=== PATIENT | male | born 1980 | race Caucasian/White ===

== ENCOUNTER 2023-10-12 14:58 | Observation (INO) | payer MEDICARE, OTHER ==
[~2023-10-12] VITALS: Ht 175.3 cm; Wt 76.8 kg
[2023-10-12] MEDS ORDERED: Nitroglycerin 0.4 MG SUBL SL PRN (15:05)
[2023-10-12 15:21] LABS: BASOPHILS ABSOLUTE AUTO 0.04 K/mm3 (0.00-0.23); BASOPHILS PERCENT AUTO 1 % (0-2); EOSINOPHILS ABSOLUTE AUTO 0.28 K/mm3 (0.00-0.68); EOSINOPHILS PERCENT AUTO 3 % (0-6); Hematocrit 45.1 % (37.0-53.0); Hemoglobin 15.6 g/dL (13.5-17.5); IMMATURE GRAN ABSOLUTE AUTO 0.05 K/mm3 (0.00-0.10); IMMATURE GRAN PERCENT AUTO 1 % (0-1); LYMPHOCYTES ABSOLUTE AUTO 2.12 K/mm3 (0.84-5.20); LYMPHOCYTES PERCENT AUTO 26 % (21-46); MONOCYTES ABSOLUTE AUTO 0.48 K/mm3 (0.16-1.47); MONOCYTES PERCENT AUTO 6 % (4-13); Mean Corpuscular HGB 30.6 pg (26.0-34.0); Mean Corpuscular HGB Conc 34.6 g/dL (31.5-36.5); Mean Corpuscular Volume 89 fL (80-100); Mean Platelet Volume 11.4 fL (9.1-12.4); NEUTROPHILS PERCENT AUTO 64 % (41-73); Platelet Count 291 K/mm3 (150-400); RDW Standard Deviation 42.4 fL (35.1-46.3); Red Blood Cell Count 5.09 M/mm3 (4.30-5.90); White Blood Cell Count 8.27 K/mm3 (4.00-11.30)
[2023-10-12] MEDS ORDERED: Lisinopril2.5 MG PO (15:23)
[2023-10-12] MEDS ORDERED: Isosorbide Mono30 MG PO (15:23)
[2023-10-12] MEDS ORDERED: METF500 PO (15:24)
[2023-10-12] MEDS ORDERED: METO25ER PO (15:24)
[2023-10-12] MEDS ORDERED: IBU600 M1 PO (15:24)
[2023-10-12 15:36] LABS: International Normalized Ratio 0.98; Prothrombin Time Results 10.3 Sec (9.7-11.5)
[2023-10-12 15:48] LABS: Albumin, Blood 3.6 g/dL (3.4-5.0); Albumin/Globulin Ratio 1.2 (0.8-1.8); Bilirubin, Total 0.2 mg/dL (0.1-1.0); Bun/Creatinine Ratio 30.9 (12.0-20.0); Calcium, Blood 8.3 mg/dL (8.5-10.1); Creatinine, Blood 0.75 mg/dL (0.60-1.20); Globulin, Blood 2.9 g/dL (2.2-4.0); Potassium, Blood 4.1 mmol/L (3.5-5.5); Total Protein, Blood 6.5 g/dL (6.4-8.2)
[2023-10-12] MEDS ORDERED: Heparin Sodium 5000 Units/ML 1ML MDV IV ONE (16:20)
[2023-10-12] MEDS ORDERED: Heparin Sodium,Porcine/0.5 NS 500 ML IV SCH (16:20)
[2023-10-12] MEDS ORDERED: Acetaminophen 325 MG TABLET PO PRN (17:05)
[2023-10-12] MEDS ORDERED: Ondansetron HCl 2 MG / ML 2ML Vial IV PRN (17:10)
[2023-10-12] MEDS ORDERED: Aspirin 81 MG Chew PO ONE (17:10)
[2023-10-12] MEDS ORDERED: NS 1,000 ML IV SCH (17:10)
[2023-10-12] MEDS ORDERED: FLU VACC QS2023-24(6MOS UP)/PF 60 MCG/0.5 ML SYRINGE IM ONE ×2 (17:10→21:50)
[2023-10-12] MEDS ORDERED: Nitroglycerin 1 INCH/GM PKT TOP SCH (18:00)
[2023-10-12] MEDS ORDERED: Mag Hydrox/Al Hydrox/Simeth 18 ML,Lidocaine 2% Viscous Soln 9 ML,Atropine/Scopalam/Hyos... PO ONE (18:10)
[2023-10-12 18:52] VITALS: BP 108/80
[2023-10-12] MEDS ORDERED: Ketorolac Tromethamine 30mg Vial IV ONE (19:00)
[2023-10-12 19:58] VITALS: BP 108/78
[2023-10-13] VITALS (14 sets, daily range): BP systolic 96–141; BP diastolic 56–97
[2023-10-13] MEDS ORDERED: Nitroglycerin 1 INCH/GM PKT TOP PRN (04:18)
--- NOTE | 2023-10-13 05:05 | NUR ---
SHIFT SUMMARY PT WAS CHEST PAIN FREE UNTIL AROUND 0400 THIS AM. PT REPORTED CHEST PAIN TO BE 10/10 AND LOCATED IN HIS RIGHT CHEST, WHICH FELT LIKE "A TIGHT SHARP SQUEEZING BALL". EKG DONE. MD MERCADO NOTIFIED. X2 TROPONINS ORDERED. NITRO PASTE ORDER MODIFIED AND NEW NITRO PATCH PLACED. PRIOR TO EKG BEING DONE PT REPORTED THAT PAIN WAS GOING DOWN AND WAS 3/10 AT THAT TIME. OTHERWISE VITALS HAVE BEEN STABLE DURING THIS SHIFT. ADMITTING PROVIDER PREVIOUSLY DC'D HEPARIN GTT. NS INFUSING PER EMAR. PT INDEPENDENT WITH ADL'S. OCCASIONAL MOMENTS OF PARANOIA REGARDING EX GIRLFRIEND; SEE ASSESSMENT. OTHERWISE PT HAS BEEN CALM AND COOPERATIVE WITH CARE. PT NPO AFTER MIDNIGHT D/T PREVIOUS PROVIDER'S NURSE NOTIFY ORDER. BED IN LOWEST POSITION AND CALL LIGHT WITHIN REACH. THIS RN WILL REPORT TO ONCOMING DAYSHIFT RN.
[2023-10-13] MEDS ORDERED: Insulin Human Lispro 100 Units/ML 3ML Syringe SC SCH (07:30)
[2023-10-13] MEDS ORDERED: Metoprolol Succinate 25 MG TABCR PO SCH (09:00)
[2023-10-13] MEDS ORDERED: Lisinopril 5 MG Tab PO SCH (09:00)
[2023-10-13] MEDS ORDERED: Aspirin 81 MG Chew PO SCH (09:00)
[2023-10-13] MEDS ORDERED: Enoxaparin 40 MG/0.4 ML SYR SC SCH (09:00)
[2023-10-13] MEDS ORDERED: NS 250 ML IV ONE (09:44)
[2023-10-13] MEDS ORDERED: Verapamil HCL 2.5 MG/ML 2ML Injection ONE (09:44)
[2023-10-13] MEDS ORDERED: Heparin Sodium 1000 Units/ML 10ML MDV ONE (09:45)
[2023-10-13] MEDS ORDERED: NS 1,000 ML IV ONE ×2 (09:45→10:29)
[2023-10-13] MEDS ORDERED: Nitroglycerin 2 MG/20 ML BTL ONE (09:45)
[2023-10-13] MEDS ORDERED: Midazolam HCl 1MG / ML 2ML Vial ONE (10:28)
[2023-10-13] MEDS ORDERED: FentaNYL Citrate 50 MCG/ML 2 ML Injection ONE (10:28)
[2023-10-13 10:42] LABS: U Amphetamine Screen Not Detected; U Barbituate Screen Not Detected; U Benzodiazapine Screen Not Detected; U Buprenorphine Screen Not Detected; U Cannabinoids Screen Not Detected; U Cocaine Screen Not Detected; U Methadone Screen Not Detected; U Methamphetamine Screen Not Detected; U Opiates Screen Not Detected; U Oxycodone Screen Not Detected; U Phencyclidine Screen Not Detected
--- NOTE | 2023-10-13 11:52 | NUR ---
"Spiritual Care Visit | Pt. Request Pt. is awake in bed and welcomes my visit. Facilitate a life review. Pt. displays evidence of having experienced emotional trauma with the past 2 years. Listen with empathy and a calming presence. Pt. displays evidence of being engaged, aware and compliant. Consider matters of miguel and belief. Prayed with the Pt. and gave him a contact resource for a local [facility] at [facility]. Pt. verbalized gratitude for the spiritual care visit and CR info."
--- NOTE | 2023-10-13 16:24 | NUR ---
ASSUMED CARE OF PT AT 0700 THIS AM. PT IS A&OX4, COOPERATIVE WITH CARE, USES CALL LIGHT APPROPRIATELY, ODD AFFECT, VERY FIDGETY IN BED. PT HAS BEEN NPO FOR ANGIOGRAM THIS AM. PT LEFT TO RUNNING INSTRUCTOR APROX 1015 AND RETURNED TO ROOM AROUND 1115. TR BAND TO R WRIST WITH 15ML AIR REPORTED BY RUNNING INSTRUCTOR STAFF. NO CORONARY INTERVENTION. POST PROCEDURE VITAL SIGNS OBTAINED AND TR BAND DEFLATED PER MD ORDERS WITHOUT ANY COMLICATIONS NOTED. TR BAND IS COMPLETELY RECOVERED AT THIS TIME. DR WHITE IN TO SEE PT APROX 1530 TO DISCUSS ANGIOGRAM AND PT'S SYMPTOMS. PLAN TO DC PT TOMORROW. CALL LIGHT IN REACH AT THIS TIME. WILL CONTINUE TO MONITOR/TREAT AND GIVE REPORT TO POOAJ MATTHEWS RN AT 1900.
[2023-10-14 03:19] VITALS: BP 115/84
--- NOTE | 2023-10-14 03:20 | NUR ---
SHIFT SUMMARY THIS RN ASSUMED CARE OF PATIENT AT 1900. PT A&OX4. ABLE TO MAKE NEEDS KNOWN. VITALS STABLE. NO TELE. RT RADIAL SITE ANGIO SITE DRESSING C/D/I. NO HEMATOMA, DISCOLORATION, OR BLEEDING NOTED. PPP. ARMBOARD IN PLACE. INDEPENDENT WITH ADL'S. NO CHEST PAIN AT T/O THIS SHIFT. BED IN LOWEST POSITION AND CALL LIGHT WITHIN REACH. PT TO MOVE TO MEDICAL FLOOR. THIS RN WILL GIVE REPORT TO MEDICAL FLOOR NURSE PRIOR TO LEAVING UNIT.
[2023-10-14 04:05] VITALS: BP 114/76
--- NOTE | 2023-10-14 05:58 | NUR ---
SHIFT SUMMERY, PT ARRIVED TO ROOM FROM PCU AT ABOUT 0400. PT ABLE TO STAND AND TRANSFER SELF. PT A& O . PT TRYING TO GO BACK TO SLEEP. PT HAD BEEN UP TO BR TO VOID. PT ALSO HD REQUESTED OJ WHEN HE ARRIVED. NO C/O CHEST PAIN OR SOB. CALL LIGHT IN REACH. LUNGS CTA BILAT , BOWEL TONES X 4 PRESENT. HRRR.
[2023-10-14 07:04] VITALS: BP 133/75
[2023-10-14] MEDS ORDERED: ZOLOFT25 MG PO (11:40)
--- NOTE | 2023-10-14 11:59 | NUR ---
SHIFT/DISCHARGE SUMMARY Pt remains A&Ox3 this shift. VSS. Denies pain. Right radial access CDI. +radial pulse palpated. Ambulating independently. Voiding without difficulty. Tolerating diet. All discharge instructions reviewed with importance of obtaining PCP and not taking Glucophage until the secondary to cardiac cath. Pt request to eat lunch and will then walk to bus station to return to the [place].
[2023-11-04] MEDS ORDERED: Prednisone20 MG PO (16:49)
[2023-11-04] MEDS ORDERED: ALBU90OI INH (16:49)
[2023-11-04] MEDS ORDERED: BENZ100A PO (16:49)
== END 2023-10-14 13:10 | disposition home or self-care (01) ==
LOC: EDBD 14:58 → ER 14:58 → PCU 14:59 → MEDS 14:59 → PCU 14:59 → MEDS 10-14 04:01 → ENPENDDIS 10-14 10:32 → MEDS 10-14 13:10
PROVIDERS: Emergency Medicine; Internal Medicine; ADMIT Internal Medicine
DX: R07.89 Other chest pain (principal); R94.39 Abnormal result of other cardiovascular function study; E11.9 Type 2 diabetes mellitus without complications; I10 Essential (primary) hypertension; F17.210 Nicotine dependence, cigarettes, uncomplicated; Z79.84 Long term (current) use of oral hypoglycemic drugs; Z79.899 Other long term (current) drug therapy; Z59.01 Sheltered homelessness
CPT/HCPCS: 36415; 71045; 76937; 80053; 82947; 84484; 85025; 85520; 85610; 85651; 85730; 86140; 93005; 93010; 93454; 96365; 96366; 96372; 96376; 99152; 99285-25; A9270; C1769; C1887; C1894; G0008; G0378; J1644; J1650; J2250; J3010; J7030; J7050; Q2036; Q9967

== ENCOUNTER 2023-10-19 15:59 | Observation (INO) | payer MEDICARE, OTHER ==
[~2023-10-19] VITALS: Ht 175.3 cm; Wt 78.5 kg
[~2023-10-19 15:59] MED LIST: IBU600 M1 PO; Isosorbide Mono30 MG PO; Lisinopril2.5 MG PO; METF500 PO; METO25ER PO; ZOLOFT25 MG PO
[2023-10-19 17:21] LABS: Source, Urine Clean Catch
[2023-10-19 17:27] LABS: BASOPHILS ABSOLUTE AUTO 0.07 K/mm3 (0.00-0.23); BASOPHILS PERCENT AUTO 1 % (0-2); EOSINOPHILS ABSOLUTE AUTO 0.43 K/mm3 (0.00-0.68); EOSINOPHILS PERCENT AUTO 5 % (0-6); Hematocrit 47.9 % (37.0-53.0); Hemoglobin 16.8 g/dL (13.5-17.5); IMMATURE GRAN ABSOLUTE AUTO 0.06 K/mm3 (0.00-0.10); IMMATURE GRAN PERCENT AUTO 1 % (0-1); LYMPHOCYTES ABSOLUTE AUTO 3.12 K/mm3 (0.84-5.20); LYMPHOCYTES PERCENT AUTO 36 % (21-46); MONOCYTES PERCENT AUTO 5 % (4-13); Mean Corpuscular HGB 30.4 pg (26.0-34.0); Mean Corpuscular HGB Conc 35.1 g/dL (31.5-36.5); Mean Corpuscular Volume 87 fL (80-100); Mean Platelet Volume 11.1 fL (9.1-12.4); NEUTROPHILS ABSOLUTE AUTO 4.63 K/mm3 (1.96-9.15); NEUTROPHILS PERCENT AUTO 53 % (41-73); Platelet Count 280 K/mm3 (150-400); RDW Coefficient Variation 13.1 % (11.7-14.2); RDW Standard Deviation 41.3 fL (35.1-46.3); Red Blood Cell Count 5.52 M/mm3 (4.30-5.90); White Blood Cell Count 8.71 K/mm3 (4.00-11.30)
[2023-10-19 17:28] LABS: Appearance, Urine Clear (Clear); Bilirubin, Urine Neg (Neg); Blood, Urine Neg (Neg); Color, Urine Yellow (P-Yellow); Glucose Qualitative, Urine Neg (Neg); Ketones, Urine Neg (Neg); Leukocyte Esterase, Urine Neg (Neg); Nitrite, Urine Neg (Neg); Protein, Urine Neg (Neg); Specific Gravity, Urine 1.015 (1.003-1.022); Urobilinogen, Urine NORM (Normal)
[2023-10-19 17:38] LABS: U Amphetamine Screen Not Detected; U Barbituate Screen Not Detected; U Benzodiazapine Screen Not Detected; U Buprenorphine Screen Not Detected; U Cannabinoids Screen Not Detected; U Cocaine Screen Not Detected; U Methadone Screen Not Detected; U Methamphetamine Screen Not Detected; U Opiates Screen Not Detected; U Oxycodone Screen Not Detected; U Phencyclidine Screen Not Detected
[2023-10-19 17:49] LABS: Ethanol (Alcohol), Blood, Med <3 mg/dL; Salicylate <1.7 mg/dL (2.8-20.0)
[2023-10-19 17:51] LABS: Alanine Aminotransfer (ALT/SGP 28 U/L (12-78); Albumin, Blood 3.8 g/dL (3.4-5.0); Albumin/Globulin Ratio 1.1 (0.8-1.8); Alk Phos 87 U/L (50-136); Anion Gap 5 mmol/L (6-16); Aspartate Aminotrans (AST/SGOT 17 U/L (12-37); Bilirubin, Total 0.5 mg/dL (0.1-1.0); Blood Urea Nitrogen 16 mg/dL (8-24); Bun/Creatinine Ratio 18.5 (12.0-20.0); CO2, Blood 26 mmol/L (21-32); Calcium, Blood 9.1 mg/dL (8.5-10.1); Chloride, Blood 109 mmol/L (98-108); Creatinine, Blood 0.87 mg/dL (0.60-1.20); Globulin, Blood 3.5 g/dL (2.2-4.0); Glomerular Filtration Rate 109 (60-); Glucose, Blood 84 mg/dL (70-99); Potassium, Blood 3.9 mmol/L (3.5-5.5); Sodium, Blood 140 mmol/L (136-145); Total Protein, Blood 7.3 g/dL (6.4-8.2)
[2023-10-19 17:52] LABS: Acetaminophen, Random <2.0 ug/mL (10.0-30.0)
[2023-10-20 02:00] LABS: Influenza A, PCR NEGATIVE (NEGATIVE); Influenza B, PCR NEGATIVE (NEGATIVE); Resp Syncytial Virus, PCR NEGATIVE (NEGATIVE); SARS-Cov-2 (COVID-19) PCR, MMC NEGATIVE (NEGATIVE)
[2023-10-23 08:25] VITALS: BP 135/102
== END 2023-10-23 09:15 ==
LOC: ER 15:59 → EOR 16:00
PROVIDERS: Student in an Organized Health Care Education/Training Program; ADMIT Student in an Organized Health Care Education/Training Program
DX: F33.2 Major depressive disorder, recurrent severe without psychotic features (principal); F43.10 Post-traumatic stress disorder, unspecified; I25.2 Old myocardial infarction
CPT/HCPCS: 0241U; 80053; 81003; 82947; 85025; 93005; 93010; 99285-25; A9270; G0378; G0480

== ENCOUNTER 2023-11-04 18:06 | Observation (INO) | payer MEDICARE, OTHER ==
[~2023-11-04] VITALS: Ht 175.3 cm; Wt 78.0 kg
[~2023-11-04 18:06] MED LIST changes: +ALBU90OI INH; +BENZ100A PO; +Prednisone20 MG PO
[2023-11-04] MEDS ORDERED: SERT100 PO (19:11)
[2023-11-04] MEDS ORDERED: Benzonatate 100 MG Cap PO ONE (19:30)
[2023-11-04] MEDS ORDERED: Albuterol 2.5 MG/3 ML VIAL INH SCH (19:35)
[2023-11-04 19:36] LABS: BASOPHILS ABSOLUTE AUTO 0.04 K/mm3 (0.00-0.23); BASOPHILS PERCENT AUTO 0 % (0-2); EOSINOPHILS ABSOLUTE AUTO 0.26 K/mm3 (0.00-0.68); EOSINOPHILS PERCENT AUTO 3 % (0-6); Hemoglobin 15.9 g/dL (13.5-17.5); IMMATURE GRAN ABSOLUTE AUTO 0.05 K/mm3 (0.00-0.10); IMMATURE GRAN PERCENT AUTO 1 % (0-1); LYMPHOCYTES ABSOLUTE AUTO 2.28 K/mm3 (0.84-5.20); LYMPHOCYTES PERCENT AUTO 24 % (21-46); MONOCYTES ABSOLUTE AUTO 0.82 K/mm3 (0.16-1.47); MONOCYTES PERCENT AUTO 9 % (4-13); Mean Corpuscular HGB 30.2 pg (26.0-34.0); Mean Corpuscular HGB Conc 34.6 g/dL (31.5-36.5); Mean Corpuscular Volume 88 fL (80-100); NEUTROPHILS ABSOLUTE AUTO 6.13 K/mm3 (1.96-9.15); NEUTROPHILS PERCENT AUTO 64 % (41-73); Platelet Count 288 K/mm3 (150-400); RDW Coefficient Variation 13.2 % (11.7-14.2); RDW Standard Deviation 42.3 fL (35.1-46.3); Red Blood Cell Count 5.26 M/mm3 (4.30-5.90); White Blood Cell Count 9.58 K/mm3 (4.00-11.30)
[2023-11-04 19:53] LABS: Ethanol (Alcohol), Blood, Med <3 mg/dL; Salicylate <1.7 mg/dL (2.8-20.0)
[2023-11-04 19:54] LABS: Acetaminophen, Random <2.0 ug/mL (10.0-30.0); Alanine Aminotransfer (ALT/SGP 35 U/L (12-78); Albumin, Blood 3.6 g/dL (3.4-5.0); Albumin/Globulin Ratio 0.9 (0.8-1.8); Alk Phos 98 U/L (50-136); Anion Gap 3 mmol/L (6-16); Aspartate Aminotrans (AST/SGOT 34 U/L (12-37); Bilirubin, Total 0.8 mg/dL (0.1-1.0); Blood Urea Nitrogen 24 mg/dL (8-24); Bun/Creatinine Ratio 34.6 (12.0-20.0); CO2, Blood 26 mmol/L (21-32); Calcium, Blood 8.4 mg/dL (8.5-10.1); Chloride, Blood 109 mmol/L (98-108); Creatinine, Blood 0.69 mg/dL (0.60-1.20); Globulin, Blood 3.8 g/dL (2.2-4.0); Glomerular Filtration Rate 117 (60-); Glucose, Blood 176 mg/dL (70-99); Sodium, Blood 138 mmol/L (136-145); Total Protein, Blood 7.4 g/dL (6.4-8.2)
[2023-11-04 22:17] LABS: U Amphetamine Screen DETECTED; U Barbituate Screen Not Detected; U Benzodiazapine Screen Not Detected; U Buprenorphine Screen Not Detected; U Cannabinoids Screen Not Detected; U Cocaine Screen Not Detected; U Methadone Screen Not Detected; U Methamphetamine Screen DETECTED; U Opiates Screen Not Detected; U Oxycodone Screen Not Detected; U Phencyclidine Screen Not Detected
[2023-11-05] MEDS ORDERED: MetFORMIN HCl 500 mg PO SCH (08:00)
[2023-11-05] MEDS ORDERED: Metoprolol Succinate 25 MG TABCR PO SCH (09:00)
[2023-11-05] MEDS ORDERED: Lisinopril 5 MG Tab PO SCH (09:00)
[2023-11-05] MEDS ORDERED: Albuterol 2.5 MG/3 ML VIAL INH PRN (11:55)
[2023-11-05] MEDS ORDERED: DEXTROMETHORPHAN/BENZOCAINE 1 EACH LOZENGE MT PRN (16:40)
[2023-11-06] MEDS ORDERED: Sertraline HCl 100 MG Tab PO SCH (09:00)
[2023-11-06] MEDS ORDERED: Sertraline HCl 50 MG Tab PO SCH (09:00)
[2023-11-06 09:13] VITALS: BP 130/83
== END 2023-11-06 17:14 ==
LOC: ER 18:06 → EOR 18:07
PROVIDERS: ADMIT Student in an Organized Health Care Education/Training Program
DX: F33.2 Major depressive disorder, recurrent severe without psychotic features (principal); F43.10 Post-traumatic stress disorder, unspecified; I25.2 Old myocardial infarction; J44.9 Chronic obstructive pulmonary disease, unspecified; F17.210 Nicotine dependence, cigarettes, uncomplicated; R45.851 Suicidal ideations; Z59.01 Sheltered homelessness; Z79.84 Long term (current) use of oral hypoglycemic drugs; Z79.899 Other long term (current) drug therapy
CPT/HCPCS: 36415; 71046; 80053; 85025; 86592; 93005; 93010; 99283-25; 99285-25; A9270; G0378; G0480